=== PATIENT | male | born 1950 | race Caucasian/White ===

== ENCOUNTER 2017-10-22 18:40 | Inpatient (IN) | payer MEDICARE, OTHER ==
[2017-10-22] MEDS ORDERED: Diltiazem 25 MG/5 ML SDV ONE (18:58)
[2017-10-22] MEDS ORDERED: Diltiazem 25 MG/5 ML SDV IVPUSH ONE ×2 (18:58→20:16)
--- NOTE | 2017-10-22 19:09 | EDM.PDOC ---
ED HPI GENERAL MEDICAL PROBLEM - General Chief Complaint: Cardiovascular Problem Stated Complaint: HEART ISSUES Time Seen by Provider: 10/22/17 18:50 Source of Information: Reports: Patient History Limitations: Reports: No Limitations - History of Present Illness INITIAL COMMENTS - FREE TEXT/NARRATIVE: 67-year-old male who has intermittent palpitations, likely atrial fibrillation but hasn't had it thoroughly evaluated has another episode tonight that has been persistent for the past 2 hours. This is his second or third episode this year. He tends to get somewhat short of breath, slight pressure in his chest but if he relaxes it usually resolves. He is on no medications. On arrival a programmer developer showed atrial fibrillation with a rate between 130 and 155. Normal blood pressure. He is afebrile. Onset: Sudden (2 hours ago) Severity: Moderate Associated Symptoms: Reports: Shortness of Breath (Slight shortness of breath). Denies: Chest Pain - Related Data Allergies Allergy/AdvReac Type Severity Reaction Status Date / Time No Known Allergies Allergy Verified 10/22/17 18:59 Home Meds: Home Meds Fish Oil/[place]-3 Fatty Acids [Fish Oil 1,000 MG] 1,000 mg PO DAILY 06/07/15 [ History] Multivit-Min/Hrb Cb121 [Urinozinc Prostate Formula Cap] 1 cap PO DAILY 06/07/15 [History] Past Medical History Other HEENT History: ear notch Social & Family History - Tobacco Use Smoking Status *Q: Never Smoker - Recreational Drug Use Recreational Drug Use: No ED ROS GENERAL - Review of Systems Review Of Systems: See Below Constitutional: Denies: Fever, Chills, Malaise HEENT: Reports: No Symptoms Respiratory: Reports: Shortness of Breath. Denies: Cough Cardiovascular: Reports: Palpitations GI/Abdominal: Denies: Abdominal Pain, Nausea, Vomiting : Reports: No Symptoms Skin: Reports: No Symptoms Neurological: Reports: No Symptoms Psychiatric: Reports: No Symptoms ED EXAM, GENERAL - Physical Exam Exam: See Below Exam Limited By: No Limitations General Appearance: Alert, No Apparent Distress Eye Exam: Bilateral Eye: Normal Inspection Head: Atraumatic Respiratory/Chest: No Respiratory Distress, Lungs Clear Cardiovascular: No Murmur, Tachycardia, Irregularly Irregular GI/Abdominal: Soft, Non-Tender Neurological: Alert, Oriented Psychiatric: Normal Affect, Normal Mood Skin Exam: Warm, Dry EKG INTERPRETATION Rhythm: A-Fib Rate (Beats/Min): 144 Course - Vital Signs Last Recorded V/S: Last Vital Signs Temp 95.9 F 10/22/17 22:43 Pulse 79 10/22/17 22:45 Resp 15 10/22/17 22:45 BP 128/78 10/22/17 22:45 Pulse Ox 93 L 10/22/17 22:45 - Orders/Labs/Meds Orders: Active Orders 24 hr Category Date Time Status Diltiazem [Cardizem] 100 mg Med 10/22/17 20:30 Active Sodium Chloride 0.9% [Normal Saline] 100 ml IV TITRATE EKG 12 Lead [EK] Routine Ther 10/22/17 18:58 Stop Req Medication Orders Acetaminophen (Tylenol) 650 mg PO Q4H PRN PRN Reason: Pain (Mild 1-3)/fever Enoxaparin Sodium (Lovenox) 40 mg SUBCUT BEDTIME RILEY Diltiazem HCl 100 mg/ Sodium (Chloride) 100 mls @ 5 mls/hr IV TITRATE RILEY; Protocol Last Admin: 10/22/17 20:42 Dose: 5 mg/hr, 5 mls/hr Sodium Chloride (Normal Saline) 1,000 mls @ 125 mls/hr IV ASDIRECTED RILEY Potassium Chloride (Kcl 20 Meq In Water 100 Ml) 100 mls @ 50 mls/hr IV Q2H RILEY Stop: 10/23/17 02:59 Last Admin: 10/22/17 23:11 Dose: 50 mls/hr Magnesium Hydroxide (Milk Of Magnesia) 30 ml PO Q12H PRN PRN Reason: Constipation Melatonin (Melatonin) 6 mg PO BEDTIME PRN PRN Reason: Insomnia Ondansetron HCl (Zofran) 4 mg IV Q4H PRN PRN Reason: Nausea/Vomiting Oxycodone HCl (Oxycodone) 5 mg PO Q4H PRN PRN Reason: Pain (moderate 4-6) Polyethylene Glycol (Miralax) 17 gm PO DAILY PRN PRN Reason: Constipation Senna/Docusate Sodium (Senna Plus) 1 tab PO BID PRN PRN Reason: Constipation Sodium Chloride (Saline Flush) 10 ml FLUSH ASDIRECTED PRN PRN Reason: Keep Vein Open Labs: Laboratory Tests 04/05/18 04/05/18 Range/Units 18:58 18:58 WBC 6.7 (4.5-11.0) K/uL RBC 5.27 (4.30-5.90) M/uL Hgb 15.2 H (12.0-15.0) g/dL Hct 45.4 (40.0-54.0) % MCV 86 (80-98) fL MCH 29 (27-31) pg MCHC 34 (32-36) % Plt Count 183 (150-400) K/uL Neut % (Auto) 60 (36-66) % Lymph % (Auto) 24 (24-44) % [place] % (Auto) 12 H (2-6) % Eos % (Auto) 3 (2-4) % Baso % (Auto) 0 (0-1) % Sodium 142 (140-148) mmol/L Potassium 3.5 L (3.6-5.2) mmol/L Chloride 107 (100-108) mmol/L Carbon Dioxide 26 (21-32) mmol/L Anion Gap 12.5 (5.0-14.0) mmol/L BUN 20 H (7-18) mg/dL Creatinine 1.1 (0.8-1.3) mg/dL Est Cr Clr Drug Dosing 63.38 mL/min Estimated GFR (MDRD) > 60 (>60) Glucose 105 (74-106) mg/dL Calcium 8.6 (8.5-10.1) mg/dL Total Bilirubin 1.0 (0.2-1.0) mg/dL AST 19 (15-37) U/L ALT 34 (12-78) U/L Alkaline Phosphatase 75 (46-116) U/L Troponin I < 0.017 (0.000-0.056) ng/mL Total Protein 7.0 (6.4-8.2) g/dL Albumin 3.6 (3.4-5.0) g/dL Globulin 3.4 (2.3-3.5) g/dL Albumin/Globulin Ratio 1.1 L (1.2-2.2) TSH, Ultra Sensitive 2.694 (0.358-3.740) uIU/mL Meds: Medications Generic Name Dose Route Start Last Admin Trade Name Freq PRN Reason Stop Dose Admin Acetaminophen 650 mg 10/22/17 22:45 Tylenol PO Q4H PRN Pain (Mild 1-3)/fever Enoxaparin Sodium 40 mg 10/22/17 22:45 Lovenox SUBCUT BEDTIME RILEY Diltiazem HCl 100 mg/ Sodium 100 mls @ 5 mls/hr 10/22/17 20:30 10/22/17 20:42 Chloride IV 5 mg/hr TITRATE RILEY 5 mls/hr Administration Protocol 5 MG/HR Sodium Chloride 1,000 mls @ 125 mls/hr 10/22/17 22:45 Normal Saline IV ASDIRECTED RILEY Potassium Chloride 100 mls @ 50 mls/hr 10/22/17 23:00 10/22/17 23:11 Kcl 20 Meq In Water 100 Ml IV 10/23/17 02:59 50 mls/hr Q2H RILEY Administration Magnesium Hydroxide 30 ml 10/22/17 22:45 Milk Of Magnesia PO Q12H PRN Constipation Melatonin 6 mg 10/22/17 23:36 Melatonin PO BEDTIME PRN Insomnia Ondansetron HCl 4 mg 10/22/17 22:45 Zofran IV Q4H PRN Nausea/Vomiting Oxycodone HCl 5 mg 10/22/17 22:45 Oxycodone PO Q4H PRN Pain (moderate 4-6) Polyethylene Glycol 17 gm 10/22/17 22:45 Miralax PO DAILY PRN Constipation Senna/Docusate Sodium 1 tab 10/22/17 22:45 Senna Plus PO BID PRN Constipation Sodium Chloride 10 ml 10/22/17 22:45 Saline Flush FLUSH ASDIRECTED PRN Keep Vein Open Discontinued Medications Generic Name Dose Route Start Last Admin Trade Name Freq PRN Reason Stop Dose Admin Diltiazem HCl 20 mg 10/22/17 18:58 10/22/17 19:05 Diltiazem IVPUSH 10/22/17 18:59 20 mg ONETIME ONE Administration Diltiazem HCl Confirm 10/22/17 18:58 10/22/17 19:04 Diltiazem Administered 10/22/17 18:59 Not Given Dose 25 mg .ROUTE .STK-MED ONE Diltiazem HCl 10 mg 10/22/17 20:16 10/22/17 20:43 Diltiazem IVPUSH 10/22/17 20:17 Not Given ONETIME ONE Sodium Chloride 1,000 mls @ 500 mls/hr 10/22/17 19:45 10/22/17 19:41 Normal Saline IV 500 mls/hr ASDIRECTED RILEY Administration Lidocaine HCl 5 ml 10/22/17 23:02 10/22/17 23:12 Xylocaine-Mpf 1% INJECT 10/22/17 23:03 2 ml ONETIME ONE Administration Melatonin 5 mg 10/22/17 23:28 Melatonin PO BEDTIME PRN Insomnia Potassium Chloride 40 meq 10/22/17 22:45 10/22/17 23:09 Klor-Con M20 PO 10/22/17 22:46 40 meq ONETIME ONE Administration Propofol 80 mg 10/22/17 19:54 10/22/17 20:00 Diprivan 20 Ml IVPUSH 10/22/17 19:55 80 mg ONETIME ONE Administration - Re-Assessments/Exams Free Text/Narrative Re-Assessment/Exam: 10/22/17 19:08 EKG was done and an IV was started. Troponin, CBC, CMP and TSH was obtained and 20 mg of IV Cardizem was given. The patient has not eaten for the last 5 hours so if he doesn't cardiovert spontaneously in the next 20-30 minutes we'll set him up for elective cardioversion. 10/22/17 20:30 After the Cardizem the patient had excellent rate control for 45 minutes but did not spontaneously convert. CBC CMP and thyroid were relatively normal. After consent, the patient was prepped for elective cardioversion, and after 80 mg of IV propofol was cardioverted with 200 J. Initially was successful but after just a minute went back into atrial fibrillation. I don't feel further cardioversion would be beneficial until the patient has an underlying medication stabilizing his rhythm, so Dr. Leslie of the hospitalist service evaluated the patient for admission for rate control and further evaluation. Departure - Departure Time of Disposition: 21:43 Disposition: Admitted As Inpatient 64 Condition: Good Clinical Impression: Atrial fibrillation with rapid ventricular response - My Orders Last 24 Hours: My Active Orders 10/22/17 18:58 EKG 12 Lead [EK] Routine - Assessment/Plan Last 24 Hours: My Active Orders 10/22/17 18:58 EKG 12 Lead [EK] Routine
[2017-10-22] MEDS ORDERED: Sodium Chloride 0.9% 1,000 ML IV SCH ×2 (19:45→22:45)
[2017-10-22] MEDS ORDERED: Propofol 200 MG/20 ML SDV IVPUSH ONE (19:54)
[2017-10-22] MEDS ORDERED: Diltiazem 100 MG in Sodium Chloride 0.9% 100 ML IV SCH (20:30)
--- NOTE | 2017-10-22 20:48 | PCM.HP ---
H&P History of Present Illness - General Date of Service: 10/22/17 Admit Problem/Dx: Admission Diagnosis/Problem Admission Diagnosis/Problem Atrial fibrillation Source of Information: Patient, Provider, RN Notes Reviewed History Limitations: Reports: No Limitations - History of Present Illness Initial Comments - Free Text/Narative: Mr. David is a 67-year-old gentleman was admitted through the emergency department for further evaluation and management of atrial fibrillation with rapid ventricular response. He's had intermittent episodes of atrial fibrillation over the past 2-1/2 years, with this episode being the third in the last 12 months. Most recent episode prior to this one occurred one week ago lasted for approximately one hour and then converted spontaneously. He was outside doing some shoveling today when he noted onset of a rapid irregular heart rhythm, when it did not resolve spontaneously he presented to the emergency department for further evaluation. EKG in the emergency department confirmed ATRIAL fibrillation with rapid ventricular response. He received 20 mg of IV diltiazem which did control the rate but he remained in atrial fibrillation. Attempted cardioversion admission was performed in the emergency department with 200 J of energy delivered after sedation with IV propofol. He did transiently convert to sinus rhythm, but after a minute or 2 went back into atrial fibrillation. He denies any symptoms of chest pain or pressure but had noted shortness of breath with exertion while he was in the atrial fibrillation prior to presenting to the emergency department. - Related Data Allergies/Adverse Reactions: Allergies Allergy/AdvReac Type Severity Reaction Status Date / Time No Known Allergies Allergy Verified 10/22/17 18:59 Home Medications: Home Meds Fish Oil/[place]-3 Fatty Acids [Fish Oil 1,000 MG] 1,000 mg PO DAILY 06/07/15 [ History] Multivit-Min/Hrb Cb121 [Urinozinc Prostate Formula Cap] 1 cap PO DAILY 06/07/15 [History] Past Medical History Other HEENT History: ear notch - Past Surgical History Musculoskeletal Surgical History: Reports: Shoulder Surgery Social & Family History - Tobacco Use Smoking Status *Q: Never Smoker - Caffeine Use Caffeine Use: Reports: Tea - Recreational Drug Use Recreational Drug Use: No H&P Review of Systems - Review of Systems: Review Of Systems: See Below General: Reports: No Symptoms HEENT: Reports: No Symptoms Pulmonary: Reports: No Symptoms Cardiovascular: Reports: Palpitations, Dyspnea on Exertion, Lightheadedness. Denies: Chest Pain, Orthopnea, PND, Edema Gastrointestinal: Reports: No Symptoms Genitourinary: Reports: No Symptoms Musculoskeletal: Reports: No Symptoms Skin: Reports: No Symptoms Psychiatric: Reports: No Symptoms Neurological: Reports: No Symptoms Hematologic/Lymphatic: Reports: No Symptoms Immunologic: Reports: No Symptoms Exam - Exam Exam: See Below - Vital Signs Vital Signs: Last Vital Signs Temp 96.8 F 10/22/17 19:08 Pulse 90 10/22/17 19:30 Resp 14 10/22/17 19:30 BP 121/63 10/22/17 19:30 Pulse Ox 97 10/22/17 19:30 Weight: 190 lb - Exam General: Alert, Oriented, Cooperative, Mild Distress HEENT: Conjunctiva Clear, Hearing Intact, Mucosa Moist & [place], Normal Nasal Septum, Posterior Pharynx Clear, Pupils Equal Neck: Supple, Trachea Midline, +2 Carotid Pulse wo Bruit Lungs: Clear to Auscultation, Normal Respiratory Effort Cardiovascular: Normal S1, Irregular Rhythm, Tachycardia. No: Systolic Murmur, Diastolic Murmur GI/Abdominal Exam: Soft, Non-Tender, No Organomegaly, No Distention Back Exam: Normal Inspection, Full Range of Motion Extremities: Non-Tender, No Pedal Edema Skin: Warm, Dry, Intact Neurological: Cranial Nerves Intact, Strength Equal Bilateral, Normal Speech, Normal Tone, Sensation Intact. No: Focal Deficit Neuro Extensive - Mental Status: Alert, Oriented x3, Normal Mood/Affect, Normal Cognition, Memory Intact - Patient Data Lab Results Last 24 hrs: Laboratory Results - last 24 hr 10/22/17 10/22/17 Range/Units 18:58 18:58 WBC 6.7 (4.5-11.0) K/uL RBC 5.27 (4.30-5.90) M/uL Hgb 15.2 H (12.0-15.0) g/dL Hct 45.4 (40.0-54.0) % MCV 86 (80-98) fL MCH 29 (27-31) pg MCHC 34 (32-36) % Plt Count 183 (150-400) K/uL Neut % (Auto) 60 (36-66) % Lymph % (Auto) 24 (24-44) % [place] % (Auto) 12 H (2-6) % Eos % (Auto) 3 (2-4) % Baso % (Auto) 0 (0-1) % Sodium 142 (140-148) mmol/L Potassium 3.5 L (3.6-5.2) mmol/L Chloride 107 (100-108) mmol/L Carbon Dioxide 26 (21-32) mmol/L Anion Gap 12.5 (5.0-14.0) mmol/L BUN 20 H (7-18) mg/dL Creatinine 1.1 (0.8-1.3) mg/dL Est Cr Clr Drug Dosing 63.38 mL/min Estimated GFR (MDRD) > 60 (>60) Glucose 105 (74-106) mg/dL Calcium 8.6 (8.5-10.1) mg/dL Total Bilirubin 1.0 (0.2-1.0) mg/dL AST 19 (15-37) U/L ALT 34 (12-78) U/L Alkaline Phosphatase 75 (46-116) U/L Troponin I < 0.017 (0.000-0.056) ng/mL Total Protein 7.0 (6.4-8.2) g/dL Albumin 3.6 (3.4-5.0) g/dL Globulin 3.4 (2.3-3.5) g/dL Albumin/Globulin Ratio 1.1 L (1.2-2.2) TSH, Ultra Sensitive 2.694 (0.358-3.740) uIU/mL Result Diagrams: 10/22/17 18:58 10/22/17 18:58 *Q Meaningful Use (ADM) - VTE Risk Assess *Q Each Risk Factor Represents 1 Point: Obesity ( BMI > 25 kg/m2) Total Score 1 Point Risk Factors: 1 Each Risk Factor Represents 2 Points: Age 60 - 74 Years Total Score 2 Point Risk Factors: 2 Each Risk Factor Represents 3 Points: None Total Score 3 Point Risk Factors: 0 Each Risk Factor Represents 5 Points: None Total Score 5 Point Risk Factors: 0 Venous Thromboembolism Risk Factor Score *Q: 3 Problem List Initiated/Reviewed/Updated: Yes Orders Last 24hrs: Active Orders 24 hr Category Date Time Status Patient Status Manage Transfer [TRANSFER] Routine ADT 10/22/17 20:35 Ordered EKG Documentation Completion [RC] ASDIRECTED Care 10/22/17 18:58 Active Diltiazem [Cardizem] 100 mg Med 10/22/17 20:30 Active Sodium Chloride 0.9% [Normal Saline] 100 ml IV TITRATE Sodium Chloride 0.9% [Normal Saline] 1,000 ml Med 10/22/17 19:45 Active IV ASDIRECTED Resuscitation Status Routine Resus Stat 10/22/17 20:36 Ordered EKG 12 Lead [EK] Routine Ther 10/22/17 18:58 Ordered Medication Orders Sodium Chloride (Normal Saline) 1,000 mls @ 500 mls/hr IV ASDIRECTED RILEY Last Admin: 10/22/17 19:41 Dose: 500 mls/hr Diltiazem HCl 100 mg/ Sodium (Chloride) 100 mls @ 5 mls/hr IV TITRATE RILEY; Protocol Assessment/Plan Comment:: ASSESSMENT AND PLAN ATRIAL FIBRILLATION WITH RAPID VENTRICULAR RESPONSE-history of paroxysmal atrial fibrillation over the past 2-1/2 years, now 3 episodes within the past 12 months. Most recent episode having occurred just one week ago prior to this admission. -Outpatient echocardiogram when available next week -continuous infusion of diltiazem per protocol -further discuss anticoagulation with patient and his in a.m. -consider antidysrhythmic therapy and referral to electrical physiology HYPOKALEMIA-mild -IV and oral potassium replacement - recheck potassium level in a.m. MAINTENANCE ISSUES -DVT prophylaxis;Lovenox 40 mg subcutaneous daily -GI prophylaxis;Not indicated -Alejandro catheter; not indicated -Nutrition; regular diet -Nicotine dependence;Not required CODE STATUS- FULL CODE ADMISSION STATUS-patient will be admitted to inpatient status, expect at least a 2 night hospital stay for evaluation and management of problems as outlined above. At the time of this admission I do not reasonably expected evaluation and management of this problem will require more than a 96 hour hospital stay. DISPOSITION-anticipate discharge to home after the hospital stay. PRIMARY CARE PROVIDER- Dr. Mason
[2017-10-22] MEDS ORDERED: Sodium Chloride 0.9% 10 ML Syringe FLUSH PRN (22:45)
[2017-10-22] MEDS ORDERED: Polyethylene Glycol 3350 Powder 17 GM Packet PO PRN (22:45)
[2017-10-22] MEDS ORDERED: Potassium Chloride 40 MEQ in Premix Bag 1 BAG IV ONE (22:45)
[2017-10-22] MEDS ORDERED: Acetaminophen 325 MG Tab PO PRN (22:45)
[2017-10-22] MEDS ORDERED: Potassium Chloride 20 MEQ Tab.ER PO ONE (22:45)
[2017-10-22] MEDS ORDERED: Ondansetron 4 MG/2 ML SDV IV PRN (22:45)
[2017-10-22] MEDS ORDERED: Magnesium Hydroxide 400 MG/5 ML Susp 30 ML Cup PO PRN (22:45)
[2017-10-22] MEDS ORDERED: oxyCODONE 5 MG Tab PO PRN (22:45)
[2017-10-22] MEDS ORDERED: Enoxaparin 40 MG/0.4 ML Syringe SUBCUT SCH (22:45)
[2017-10-22] MEDS ORDERED: Potassium Chloride 100 ML IV SCH (23:00)
[2017-10-22] MEDS: Potassium Chloride 100 ML IV SCH (23:11)
[2017-10-22] MEDS ORDERED: Melatonin 3 MG Tab PO PRN ×2 (23:28→23:36)
[2017-10-23] MEDS: Potassium Chloride 100 ML IV SCH (01:12)
[2017-10-23] MEDS ORDERED: Sodium Chloride 0.9% 500 ML IV SCH (04:30)
[2017-10-23] MEDS ORDERED: Diltiazem 120 MG Cap.CD PO SCH (10:00)
--- NOTE | 2017-10-23 10:29 | PCM.PN ---
- General Info Date of Service: 10/23/17 Subjective Update: Mr. David was admitted last night with atrial fibrillation and rapid ventricular response, failed cardioversion in the emergency department. He did have one episode of hypotension during the night but responded to decreasing dose of the diltiazem as well as a fluid bolus. He feels well this morning but does remain in atrial fibrillation. Rate has been controlled and less than 100. Discussed options for ongoing management with the patient as well as , he has a Leata6Xewe score of 2 with an age of 68 and history of hypertension. This indicates the need for anticoagulation we discussed options including warfarin versus newer agents, including risks and benefits of each type of therapy. He prefers to use one of the newer agents because of convenience. - Review of Systems General: Reports: No Symptoms Pulmonary: Reports: No Symptoms Cardiovascular: Reports: No Symptoms Gastrointestinal: Reports: No Symptoms - Patient Data Vitals - Most Recent: Last Vital Signs Temp 97.9 F 10/23/17 07:00 Pulse 93 10/23/17 10:20 Resp 22 H 10/23/17 09:00 BP 113/81 10/23/17 10:20 Pulse Ox 97 10/23/17 09:00 Weight - Most Recent: 185 lb 13.595 oz I&O - Last 24 Hours: Intake & Output 10/22/17 10/23/17 10/23/17 22:59 06:59 14:59 Intake Total 2426 Output Total 1250 Balance 1176 Lab Results Last 24 Hours: Laboratory Results - last 24 hr 10/22/17 10/22/17 10/23/17 Range/Units 18:58 18:58 06:04 WBC 6.7 (4.5-11.0) K/uL RBC 5.27 (4.30-5.90) M/uL Hgb 15.2 H (12.0-15.0) g/dL Hct 45.4 (40.0-54.0) % MCV 86 (80-98) fL MCH 29 (27-31) pg MCHC 34 (32-36) % Plt Count 183 (150-400) K/uL Neut % (Auto) 60 (36-66) % Lymph % (Auto) 24 (24-44) % [place] % (Auto) 12 H (2-6) % Eos % (Auto) 3 (2-4) % Baso % (Auto) 0 (0-1) % Sodium 142 144 (140-148) mmol/L Potassium 3.5 L 4.7 (3.6-5.2) mmol/L Chloride 107 112 H (100-108) mmol/L Carbon Dioxide 26 22 (21-32) mmol/L Anion Gap 12.5 14.7 H (5.0-14.0) mmol/L BUN 20 H 19 H (7-18) mg/dL Creatinine 1.1 1.1 (0.8-1.3) mg/dL Est Cr Clr Drug Dosing 63.38 65.44 mL/min Estimated GFR (MDRD) > 60 > 60 (>60) Glucose 105 90 (74-106) mg/dL Calcium 8.6 7.9 L (8.5-10.1) mg/dL Magnesium 1.8 (1.8-2.4) mg/dL Total Bilirubin 1.0 (0.2-1.0) mg/dL AST 19 (15-37) U/L ALT 34 (12-78) U/L Alkaline Phosphatase 75 (46-116) U/L Troponin I < 0.017 (0.000-0.056) ng/mL Total Protein 7.0 (6.4-8.2) g/dL Albumin 3.6 (3.4-5.0) g/dL Globulin 3.4 (2.3-3.5) g/dL Albumin/Globulin Ratio 1.1 L (1.2-2.2) TSH, Ultra Sensitive 2.694 (0.358-3.740) uIU/mL Med Orders - Current: Current Medications Acetaminophen (Tylenol) 650 mg PO Q4H PRN PRN Reason: Pain (Mild 1-3)/fever Diltiazem HCl (Cardizem Cd) 120 mg PO DAILY RILEY Last Admin: 10/23/17 10:20 Dose: 120 mg Enoxaparin Sodium (Lovenox) 40 mg SUBCUT BEDTIME RILEY Last Admin: 10/22/17 23:42 Dose: 40 mg Magnesium Hydroxide (Milk Of Magnesia) 30 ml PO Q12H PRN PRN Reason: Constipation Melatonin (Melatonin) 6 mg PO BEDTIME PRN PRN Reason: Insomnia Last Admin: 10/22/17 23:42 Dose: 6 mg Ondansetron HCl (Zofran) 4 mg IV Q4H PRN PRN Reason: Nausea/Vomiting Oxycodone HCl (Oxycodone) 5 mg PO Q4H PRN PRN Reason: Pain (moderate 4-6) Polyethylene Glycol (Miralax) 17 gm PO DAILY PRN PRN Reason: Constipation [facility]aroxaban ([facility]) [facility] Senna/Docusate Sodium (Senna Plus) 1 tab PO BID PRN PRN Reason: Constipation Sodium Chloride (Saline Flush) 10 ml FLUSH ASDIRECTED PRN PRN Reason: Keep Vein Open Discontinued Medications Diltiazem HCl (Diltiazem) 20 mg IVPUSH ONETIME ONE Stop: 10/22/17 18:59 Last Admin: 10/22/17 19:05 Dose: 20 mg Diltiazem HCl (Diltiazem) Confirm Administered Dose 25 mg .ROUTE .STK-MED ONE Stop: 10/22/17 18:59 Last Admin: 10/22/17 19:04 Dose: Not Given Diltiazem HCl (Diltiazem) 10 mg IVPUSH ONETIME ONE Stop: 10/22/17 20:17 Last Admin: 10/22/17 20:43 Dose: Not Given Sodium Chloride (Normal Saline) 1,000 mls @ 500 mls/hr IV ASDIRECTED [facility] Last Admin: 10/22/17 19:41 Dose: 500 mls/hr Diltiazem HCl 100 mg/ Sodium (Chloride) 100 mls @ 5 mls/hr IV TITRATE RILEY; Protocol Last Titration: 10/23/17 04:22 Dose: 2.5 mg/hr, 2.5 mls/hr Sodium Chloride (Normal Saline) 1,000 mls @ 125 mls/hr IV ASDIRECTED RILEY Last Admin: 10/23/17 01:41 Dose: 125 mls/hr Potassium Chloride (Kcl 20 Meq In Water 100 Ml) 100 mls @ 50 mls/hr IV Q2H RILEY Stop: 10/23/17 02:59 Last Admin: 10/23/17 01:12 Dose: 50 mls/hr Sodium Chloride (Normal Saline) 500 mls @ 500 mls/hr IV ASDIRECTED RILEY Last Admin: 10/23/17 04:30 Dose: 500 mls/hr Lidocaine HCl (Xylocaine-Mpf 1%) 5 ml INJECT ONETIME ONE Stop: 10/22/17 23:03 Last Admin: 10/22/17 23:12 Dose: 2 ml Lidocaine HCl (Xylocaine-Mpf 1%) 5 ml INJECT ONETIME ONE Stop: 10/23/17 00:35 Last Admin: 10/23/17 01:12 Dose: 5 ml Melatonin (Melatonin) 5 mg PO BEDTIME PRN PRN Reason: Insomnia Potassium Chloride (Klor-Con M20) 40 meq PO ONETIME ONE Stop: 10/22/17 22:46 Last Admin: 10/22/17 23:09 Dose: 40 meq Propofol (Diprivan 20 Ml) 80 mg IVPUSH ONETIME ONE Stop: 10/22/17 19:55 Last Admin: 10/22/17 20:00 Dose: 80 mg - Exam Quality Assessment: DVT Prophylaxis General: Alert, Oriented, Cooperative, No Acute Distress Lungs: Clear to Auscultation, Normal Respiratory Effort Cardiovascular: Regular Rate, No Murmurs, Irregular Rhythm GI/Abdominal Exam: Soft, Non-Tender, No Organomegaly, No Distention Extremities: Non-Tender, No Pedal Edema Skin: Warm, Dry, Intact - Problem List Review Problem List Initiated/Reviewed/Updated: Yes - My Orders Last 24 Hours: My Active Orders 10/22/17 20:36 Resuscitation Status Routine 10/22/17 22:45 Patient Status [ADT] Routine Ambulate [RC] QID Height and Weight [RC] DAILY Intake and Output [RC] QSHIFT Notify Provider Vital Signs [RC] ASDIRECTED Oxygen Therapy [RC] PRN Peripheral IV Care [RC] . DIRECTED Up ad Meghann [RC] ASDIRECTED Up to Chair [RC] QID VTE/DVT Education [RC] Per Unit Routine Vital Signs [RC] Q1H Acetaminophen [Tylenol] 650 mg PO Q4H PRN Docusate Sodium/Sennosides [Senna Plus] 1 tab PO BID PRN Enoxaparin [Lovenox] 40 mg SUBCUT BEDTIME Magnesium Hydroxide [Milk of Magnesia] 30 ml PO Q12H PRN Ondansetron [Zofran] 4 mg IV Q4H PRN Polyethylene Glycol 3350 [MiraLAX] 17 gm PO DAILY PRN Sodium Chloride 0.9% [Saline Flush] 10 ml FLUSH ASDIRECTED PRN oxyCODONE 5 mg PO Q4H PRN Peripheral IV Insertion Adult [OM.PC] Routine 10/22/17 23:36 Melatonin 6 mg PO BEDTIME PRN 10/23/17 09:47 Convert IV to Saline Lock [OM.PC] Routine 10/23/17 10:00 Diltiazem [Cardizem CD] 120 mg PO DAILY 10/23/17 17:00 Rivaroxaban [Xarelto] 20 mg PO WITHDINNER - Plan Plan:: ASSESSMENT AND PLAN ATRIAL FIBRILLATION WITH RAPID VENTRICULAR RESPONSE-rate control has been good, he did have transient hypotension that resolved with decreasing the dose of diltiazem as well as a fluid bolus. He has a [id number] score of 2. -Outpatient echocardiogram when available next week -Discontinue IV diltiazem -Cardizem CD 120 mg by mouth daily -Xarelto 20 mg by mouth daily -consider antidysrhythmic therapy and referral to electrical physiology HYPOKALEMIA-resolved after replacement, potassium level this morning well within normal range MAINTENANCE ISSUES -DVT prophylaxis;Lovenox 40 mg subcutaneous daily -GI prophylaxis;Not indicated -Alejandro catheter; not indicated -Nutrition; regular diet -Nicotine dependence;Not required CODE STATUS- FULL CODE ADMISSION STATUS-patient will be admitted to inpatient status, expect at least a 2 night hospital stay for evaluation and management of problems as outlined above. At the time of this admission I do not reasonably expected evaluation and management of this problem will require more than a 96 hour hospital stay. DISPOSITION-anticipate discharge to home after the hospital stay. PRIMARY CARE PROVIDER- Dr. Mason
[2017-10-23 13:44] VITALS: BP 105/63
--- NOTE | 2017-10-23 14:11 | PCM.DCSUM1 ---
Discharge Summary - Hospital Course Brief History: Mr. David is a 67-year-old gentleman who was admitted through the emergency department for further evaluation and management of atrial fibrillation with rapid ventricular response. - Discharge Data Discharge Date: 10/23/17 Discharge Disposition: Home, Self-Care 01 Condition: Fair - Discharge Diagnosis/Problem(s) (1) Atrial fibrillation with rapid ventricular response SNOMED Code(s): 391376739905630 ICD Code: I48.91 - UNSPECIFIED ATRIAL FIBRILLATION Status: Acute Current Visit: Yes (2) Essential hypertension SNOMED Code(s): 36777066 ICD Code: I10 - ESSENTIAL (PRIMARY) HYPERTENSION Status: Chronic Current Visit: No - Patient Summary/Data Hospital Course: Mr. David is a 67-year-old gentleman was admitted through the emergency department for further evaluation and management of atrial fibrillation with rapid ventricular response. He's had intermittent episodes of atrial fibrillation over the past 2-1/2 years, with this episode being the third in the last 12 months. Most recent episode prior to this one occurred one week ago lasted for approximately one hour and then converted spontaneously. He was outside doing some shoveling today when he noted onset of a rapid irregular heart rhythm, when it did not resolve spontaneously he presented to the emergency department for further evaluation. EKG in the emergency department confirmed ATRIAL fibrillation with rapid ventricular response. He received 20 mg of IV diltiazem which did control the rate but he remained in atrial fibrillation. Attempted cardioversion was performed in the emergency department with 200 J of energy delivered after sedation with IV propofol. He did transiently convert to sinus rhythm, but after a minute or 2 went back into atrial fibrillation. He denies any symptoms of chest pain or pressure but had noted shortness of breath with exertion while he was in the atrial fibrillation prior to presenting to the emergency department. He was started on a continuous infusion of IV diltiazem and admitted to the hospital for further evaluation and management. Potassium level was noted to be low in the emergency department and he was given oral and IV potassium replacement. By the following morning his potassium level normalized. 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 Diltiazem infusion was decreased to 2.5 mg per hour and he was given a fluid bolus. Hypotension resolved with these 2 interventions. On the morning of discharge she was transitioned to oral diltiazem CD 120 mg daily. Discussion was held with patient and concerning options for anticoagulation, his [id number] score was 2, indicating the need for anticoagulation. We discussed use of warfarin versus new or agents and they elected to be placed on Xarelto. Potential risks of the medication including bleeding and potential difficulty with reversibility were reviewed with both a shunt and his . He will be discharged home on oral diltiazem and the Xarelto. TSH was obtained in the emergency department and found to be within normal range. Outpatient echocardiogram will be scheduled for next week and a follow-up with his primary care provider next week as well. Activity will be as tolerated and he will resume his usual diet. Consider cardiology EP consult, for recommendations concerning possible antidysrhythmic therapy and ongoing management of his paroxysmal A. fib. Mr. David was initially admitted as an inpatient anticipating at least a 2 night hospital stay for evaluation and management of his atrial fibrillation with rapid ventricular response. He stabilized sooner than expected and will be discharged after a one night hospital stay. - Patient Instructions Diet: Usual Diet as Tolerated Activity: As Tolerated Other/Special Instructions: please schedule echocardiogram as an outpatient next week. Please schedule follow-up appointment with Dr. Mason within one week. - Discharge Plan Prescriptions/Med Rec: Diltiazem HCl [Diltiazem 24Hr Cd] 120 mg PO DAILY #30 cap.er.24h Rivaroxaban [Xarelto] 20 mg PO DAILY #30 tablet Home Medications: Home Meds Fish Oil/[place]-3 Fatty Acids [Fish Oil 1,000 MG] 1,000 mg PO DAILY 06/07/15 [ History] Multivit-Min/Hrb Cb121 [Urinozinc Prostate Formula Cap] 1 cap PO DAILY 06/07/15 [History] Diltiazem HCl [Diltiazem 24Hr Cd] 120 mg PO DAILY #30 cap.er.24h 10/23/17 [Rx] Rivaroxaban [Xarelto] 20 mg PO DAILY #30 tablet 10/23/17 [Rx] Referrals: Ryley Mason MD [Primary Care Provider] - - Discharge Summary/Plan Comment DC Time >30 min.: No - Patient Data Vitals - Most Recent: Last Vital Signs Temp 97.9 F 10/23/17 07:00 Pulse 89 10/23/17 13:00 Resp 16 10/23/17 13:00 BP 105/63 10/23/17 13:00 Pulse Ox 99 10/23/17 13:00 Weight - Most Recent: 185 lb 13.595 oz I&O - Last 24 hours: Intake & Output 10/22/17 10/23/17 10/23/17 22:59 06:59 14:59 Intake Total 2426 Output Total 1250 Balance 1176 Lab Results - Last 24 hrs: Laboratory Results - last 24 hr 10/22/17 10/22/17 10/23/17 Range/Units 18:58 18:58 06:04 WBC 6.7 (4.5-11.0) K/uL RBC 5.27 (4.30-5.90) M/uL Hgb 15.2 H (12.0-15.0) g/dL Hct 45.4 (40.0-54.0) % MCV 86 (80-98) fL MCH 29 (27-31) pg MCHC 34 (32-36) % Plt Count 183 (150-400) K/uL Neut % (Auto) 60 (36-66) % Lymph % (Auto) 24 (24-44) % [place] % (Auto) 12 H (2-6) % Eos % (Auto) 3 (2-4) % Baso % (Auto) 0 (0-1) % Sodium 142 144 (140-148) mmol/L Potassium 3.5 L 4.7 (3.6-5.2) mmol/L Chloride 107 112 H (100-108) mmol/L Carbon Dioxide 26 22 (21-32) mmol/L Anion Gap 12.5 14.7 H (5.0-14.0) mmol/L BUN 20 H 19 H (7-18) mg/dL Creatinine 1.1 1.1 (0.8-1.3) mg/dL Est Cr Clr Drug Dosing 63.38 65.44 mL/min Estimated GFR (MDRD) > 60 > 60 (>60) Glucose 105 90 (74-106) mg/dL Calcium 8.6 7.9 L (8.5-10.1) mg/dL Magnesium 1.8 (1.8-2.4) mg/dL Total Bilirubin 1.0 (0.2-1.0) mg/dL AST 19 (15-37) U/L ALT 34 (12-78) U/L Alkaline Phosphatase 75 (46-116) U/L Troponin I < 0.017 (0.000-0.056) ng/mL Total Protein 7.0 (6.4-8.2) g/dL Albumin 3.6 (3.4-5.0) g/dL Globulin 3.4 (2.3-3.5) g/dL Albumin/Globulin Ratio 1.1 L (1.2-2.2) TSH, Ultra Sensitive 2.694 (0.358-3.740) uIU/mL Med Orders - Current: Current Medications Acetaminophen (Tylenol) 650 mg PO Q4H PRN PRN Reason: Pain (Mild 1-3)/fever Diltiazem HCl (Cardizem Cd) 120 mg PO DAILY [facility] Last Admin: 10/23/17 10:20 Dose: 120 mg Enoxaparin Sodium (Lovenox) 40 mg SUBCUT BEDTIME [facility] Last Admin: 10/22/17 23:42 Dose: 40 mg Magnesium Hydroxide (Milk Of Magnesia) 30 ml PO Q12H PRN PRN Reason: Constipation Melatonin (Melatonin) 6 mg PO BEDTIME PRN PRN Reason: Insomnia Last Admin: 10/22/17 23:42 Dose: 6 mg Ondansetron HCl (Zofran) 4 mg IV Q4H PRN PRN Reason: Nausea/Vomiting Oxycodone HCl (Oxycodone) 5 mg PO Q4H PRN PRN Reason: Pain (moderate 4-6) Polyethylene Glycol (Miralax) 17 gm PO DAILY PRN PRN Reason: Constipation [facility]) [facility] Senna/Docusate Sodium (Senna Plus) 1 tab PO BID PRN PRN Reason: Constipation Sodium Chloride (Saline Flush) 10 ml FLUSH ASDIRECTED PRN PRN Reason: Keep Vein Open Discontinued Medications Diltiazem HCl (Diltiazem) 20 mg IVPUSH ONETIME ONE Stop: 10/22/17 18:59 Last Admin: 10/22/17 19:05 Dose: 20 mg Diltiazem HCl (Diltiazem) Confirm Administered Dose 25 mg .ROUTE .STK-MED ONE Stop: 10/22/17 18:59 Last Admin: 10/22/17 19:04 Dose: Not Given Diltiazem HCl (Diltiazem) 10 mg IVPUSH ONETIME ONE Stop: 10/22/17 20:17 Last Admin: 10/22/17 20:43 Dose: Not Given Sodium Chloride (Normal Saline) 1,000 mls @ 500 mls/hr IV ASDIRECTED [facility] Last Admin: 10/22/17 19:41 Dose: 500 mls/hr Diltiazem HCl 100 mg/ Sodium (Chloride) 100 mls @ 5 mls/hr IV TITRATE [facility]; Protocol Last Titration: 10/23/17 04:22 Dose: 2.5 mg/hr, 2.5 mls/hr Sodium Chloride (Normal Saline) 1,000 mls @ 125 mls/hr IV ASDIRECTED [facility] Last Admin: 10/23/17 01:41 Dose: 125 mls/hr Potassium Chloride (Kcl 20 Meq In Water 100 Ml) 100 mls @ 50 mls/hr IV Q2H [facility] Stop: 10/23/17 02:59 Last Admin: 10/23/17 01:12 Dose: 50 mls/hr Sodium Chloride (Normal Saline) 500 mls @ 500 mls/hr IV ASDIRECTED [facility] Last Admin: 10/23/17 04:30 Dose: 500 mls/hr Lidocaine HCl (Xylocaine-Mpf 1%) 5 ml INJECT ONETIME ONE Stop: 10/22/17 23:03 Last Admin: 10/22/17 23:12 Dose: 2 ml Lidocaine HCl (Xylocaine-Mpf 1%) 5 ml INJECT ONETIME ONE Stop: 10/23/17 00:35 Last Admin: 10/23/17 01:12 Dose: 5 ml Melatonin (Melatonin) 5 mg PO BEDTIME PRN PRN Reason: Insomnia Potassium Chloride (Klor-Con M20) 40 meq PO ONETIME ONE Stop: 10/22/17 22:46 Last Admin: 10/22/17 23:09 Dose: 40 meq Propofol (Diprivan 20 Ml) 80 mg IVPUSH ONETIME ONE Stop: 10/22/17 19:55 Last Admin: 10/22/17 20:00 Dose: 80 mg - Exam General: Reports: Alert, Oriented, Cooperative, No Acute Distress Neck: Reports: Thyromegaly Lungs: Reports: Clear to Auscultation Cardiovascular: Reports: Regular Rate, No Murmurs, Irregular Rhythm GI/Abdominal Exam: Soft, Non-Tender, No Organomegaly, No Distention Extremities: Non-Tender, No Pedal Edema
[2017-10-23] MEDS ORDERED: Rivaroxaban 10 MG Tab PO SCH (17:00)
== END 2017-10-23 14:35 | disposition home or self-care (01) | DRG 310 ==
LOC: JP.ED 18:40 → JP.ICU 20:35
PROVIDERS: ADMIT Hospitalist; ATTEND Hospitalist
PROC: 5A2204Z Restoration of Cardiac Rhythm, Single (ICD-10-PCS; principal; 2017-10-22)
DX: I48.91 Unspecified atrial fibrillation (principal); I48.0 Paroxysmal atrial fibrillation; I10 Essential (primary) hypertension; R00.2 Palpitations; R06.02 Shortness of breath; E87.6 Hypokalemia; I95.9 Hypotension, unspecified; Z79.01 Long term (current) use of anticoagulants
CPT/HCPCS: 36415; 80053; 84443; 84484; 85025; 92960; 93005; 96361; 96374; 99285; J2704; J3490; J7040; 80048; 83735; A9270-GY; J1650; J3480; J7030; J7050

== ENCOUNTER 2018-11-25 11:48 | Emergency (ER) | payer MEDICARE, OTHER ==
[2018-11-25 12:04] VITALS: BP 143/82
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
[2018-11-25] MEDS ORDERED: Diltiazem 25 MG/5 ML SDV IVPUSH ONE ×2 (12:42→13:26)
[2018-11-25] MEDS ORDERED: Sodium Chloride 0.9% 250 ML IV SCH (12:45)
[2018-11-25] MEDS ORDERED: Insulin Regular, Human 100 Units/ML 3 ML Vial SUBCUT ONE (13:27)
--- NOTE | 2018-11-25 13:35 | CRLCR ---
Final Report: INDICATION: Shortness of breath and atrial fib. CHEST, ONE VIEW An AP radiograph of the chest was performed. Comparison: No previous studies are currently available for comparison. The lungs appear clear and no pleural effusions are identified. The cardiomediastinal silhouette and pulmonary vasculature appear normal, as do the visualized bones. IMPRESSION: No acute intrathoracic abnormality identified. LAY HENLEY MD [employer] Dictated by: Ryan Henley MD @ 11/25/2018 13:31:35 (Electronic Signature) [facility]
== END 2018-11-25 14:37 | disposition home or self-care (01) ==
LOC: JP.ED 11:48
DX: I48.91 Unspecified atrial fibrillation (principal); Z79.899 Other long term (current) drug therapy
CPT/HCPCS: 36415; 71045; 80053; 83735; 84443; 84484; 85025; 93005; 96361; 96374; 96376; 99284; J3490; J7050

== ENCOUNTER 2022-12-27 12:08 | Emergency (ER) | payer MEDICARE, OTHER ==
[2022-12-27 13:04] VITALS: BP 145/66; PULSE 83
[2022-12-27 14:44] LABS: LYME AB IgG Negative (Negative)
[2022-12-27 14:46] LABS: LYME AB IgM Negative (Negative)
== END 2022-12-27 14:43 | disposition home or self-care (01) ==
LOC: JP.ED 12:08
DX: S70.361A Insect bite (nonvenomous), right thigh, initial encounter (principal); I48.91 Unspecified atrial fibrillation; Z87.891 Personal history of nicotine dependence; Z86.16 Personal history of COVID-19; W57.XXXA Bitten or stung by nonvenomous insect and other nonvenomous arthropods, initial encounter
CPT/HCPCS: 10120; 86618; 86666; 86753; 99282-25